=== PATIENT | male | born 1940 | race Caucasian/White ===

== ENCOUNTER 2016-09-25 16:54 | Outpatient (CLI) | payer MEDICARE, OTHER ==
--- NOTE | 2016-09-26 09:07 | Ultrasound Report ---
AORTA SCREEN: 09/25/2016 CLINICAL INDICATION: Smoking history. TECHNIQUE: Real-time scanning was performed with customer success representative static images obtained. FINDINGS: The abdominal aorta is normal in caliber, measuring 2.0 cm proximally, 1.6 cm in the mid p ortion, and 1.6 cm distally. The iliacs are not dilated. No free fluid is present. IMPRESSION: NO EVIDENCE OF ABDOMINAL AORTIC ANEURYSM. JOB #: [id number] EXT JOB #:[id number]
== END 2016-09-25 16:55 | disposition home or self-care (01) ==
LOC: DI 16:54
PROVIDERS: ATTEND Internal Medicine
DX: Z13.6 Encounter for screening for cardiovascular disorders (principal); Z87.891 Personal history of nicotine dependence
CPT/HCPCS: 76706

== ENCOUNTER 2016-10-02 13:29 | Outpatient (CLI) | payer MEDICARE, OTHER ==
[2016-10-02 18:41] LABS: BASOPHILS # (AUTO) 0.1 10^3/uL (0.0-0.1); BASOPHILS % (AUTO) 1.1 %; EOSINOPHILS # (AUTO) 0.2 10^3/uL (0.0-0.7); EOSINOPHILS % (AUTO) 2.7 %; HCT - HEMATOCRIT 37.4 % (42.0-52.0); HGB - HEMOGLOBIN 12.7 g/dL (14.0-18.0); LYMPHOCYTES # (AUTO) 1.6 10^3/uL (1.5-3.5); MEAN CORPUSCULAR HEMOGLOBIN 30.6 pg (27.0-31.0); MEAN CORPUSCULAR VOLUME 89.9 fL (80.0-94.0); MEAN PLATELET VOLUME 7.6 fL (7.4-11.4); MONOCYTES # (AUTO) 0.5 10^3/uL (0.0-1.0); NEUTROPHILS % (AUTO) 63.2 %; NUCLEATED RED BLOOD CELLS AUTO 0.1 /100WBC; RED BLOOD COUNT 4.16 10^6/uL (4.70-6.10); RED CELL DISTRIBUTION WIDTH 13.3 % (12.0-15.0); UNCORRECTED WHITE BLOOD COUNT 6.4 x10^3/uL; WHITE BLOOD COUNT 6.4 x10^3/uL (4.8-10.8)
[2016-10-02 18:54] LABS: CALCIUM 9.3 mg/dL (8.5-10.3); CREATININE 0.8 mg/dL (0.6-1.2)
== END 2016-10-02 13:30 | disposition home or self-care (01) ==
LOC: LAB.F 13:29
PROVIDERS: ATTEND Internal Medicine
DX: Z00.00 Encounter for general adult medical examination without abnormal findings (principal); E03.9 Hypothyroidism, unspecified; D64.9 Anemia, unspecified; Z91.030 Bee allergy status; I50.30 Unspecified diastolic (congestive) heart failure; R60.0 Localized edema; R53.83 Other fatigue; M25.551 Pain in right hip
CPT/HCPCS: 36415; 80048; 82728; 83540; 84466; 85025; 87640

== ENCOUNTER 2016-10-08 16:02 | Outpatient (CLI) | payer MEDICARE, OTHER | END 2016-10-08 23:59 | disposition home or self-care (01) | LOC: LAB.S 16:02 | PROVIDERS: ATTEND Internal Medicine | DX: Z00.00 Encounter for general adult medical examination without abnormal findings (principal); E03.9 Hypothyroidism, unspecified; Z91.030 Bee allergy status; D64.9 Anemia, unspecified; I50.30 Unspecified diastolic (congestive) heart failure; R60.0 Localized edema; R53.83 Other fatigue; M25.551 Pain in right hip | CPT/HCPCS: 87640 ==

== ENCOUNTER 2023-07-10 13:05 | Outpatient (CLI) | payer MEDICARE ==
--- NOTE | 2023-07-10 16:07 | MRI Report ---
PROCEDURE: Pelvis W/WO INDICATIONS: ELEVATED PSA CONTRAST: clariscan 14.6ml TECHNIQUE: Coronal ultra fast SE, axial T1 FSE with fat saturation, 3-plane nonbreath-hold T2 FSE. After the ad ministration of contrast, dynamic axial, delayed axial and coronal ultra fast GE or 2-D spoiled GE wi th fat saturation through the pelvis. Optional diffusion weighted imaging and ADC may be performed. COMPARISON: None. FINDINGS: Image quality: Diffusion weighted and dynamic contrast enhanced images are diagnostic. Prostate: Gland size is 4.0 x 3.9 x 4.0 cm; ellipsoid gland volume is 32 mL. Prostate lesions: Lesion 1: Location: Midline, mid gland, anterior transition zone. This is best seen on axial series 5, image 10 and sagittal series 7, image 13. Size: [] cm. T2W signal: Lenticular or non-circumscribed, homogeneous, moderately hypointense (PI-RADS 4 or 5). DWI signal: Markedly hyperintense signal (PI-RADS 4-5). ADC signal: Markedly hypointense signal (PI-RADS 4-5). Enhancement: Yes Extracapsular extension: Yes, into the anterior fibromuscular stroma. No neurovascular involvement. N o seminal vesicle involvement. PI-RADS score: 5 Genitourinary system: Bladder wall thickness is normal. Distal ureters are non distended. Trabecu lated bladder wall. Bowel and peritoneum: No pathologic free pelvic fluid. Inferior colon and small bowel loops are nor mal in caliber. Colonic diverticulosis without evidence of diverticulitis. Nodes and vessels: No pelvic or inguinal adenopathy by size criteria. Iliac vessels are normal in c aliber. Soft tissues: No inguinal hernias. Bones: Bone marrow demonstrates normal overall signal. No suspicious bony lesions. IMPRESSION: PI-RADS 5 lesion in the anterior transition zone of the mid gland, with invasion into the anterior fi bromuscular stroma. Reviewed by: Yasmani Meehan MD on 07/10/2023 4:05 PM PDT Approved by: Yasmani Meehan MD on 07/10/2023 4:05 PM PDT Station ID: [id number]
[2023-07-10] MEDS: GADOTERATE MEGLUMINE 7.5 MMOL/15 ML VIAL IVP ONE (17:29)
== END 2023-07-10 13:06 | disposition home or self-care (01) ==
LOC: LAB 13:05
PROVIDERS: ATTEND Physician Assistant Medical
DX: R97.20 Elevated prostate specific antigen [PSA] (principal); N42.89 Other specified disorders of prostate
CPT/HCPCS: 36415; 82565

== ENCOUNTER 2023-11-07 08:00 | Outpatient (CLI) | payer MEDICARE ==
[2023-11-07 16:56] LABS: BILIRUBIN,URINE NEGATIVE (NEGATIVE); CLARITY,URINE CLEAR (CLEAR); GLUCOSE, URINE (UA) NEGATIVE (NEGATIVE); KETONES,URINE (UA) NEGATIVE (NEGATIVE); LEUKOCYTE ESTERASE, URINE NEGATIVE (NEGATIVE); NITRITE,URINE NEGATIVE (NEGATIVE); OCCULT BLOOD,URINE NEGATIVE (NEGATIVE); PROTEIN,URINE NEGATIVE (NEGATIVE); UROBILINOGEN,URINE 0.2 (NORMAL) E.U./dL (NORMAL)
[2023-11-07 17:23] LABS: BACTERIA,URINE None Seen /HPF (None Seen); RBC,URINE None Seen /HPF (0-5); SQUAMOUS EPITHELIAL CELL,UR FEW Squamous (<= Few); WBC,URINE 0-3 /HPF (0-3)
== END 2023-11-07 23:59 | disposition home or self-care (01) ==
LOC: LAB 08:00
PROVIDERS: ATTEND Urology
DX: R97.20 Elevated prostate specific antigen [PSA] (principal)
CPT/HCPCS: 81001; 87086